=== PATIENT | female | born 1945 | race Caucasian/White ===

== ENCOUNTER 2019-01-31 09:08 | Inpatient (IN) | payer BC, OTHER ==
[~2019-01-31] VITALS: Ht 157.5 cm; Wt 66.7 kg
[2019-01-31 09:48] LABS: BASOPHILS # (AUTO) 0.1 /CMM (0.0-0.2); BASOPHILS % (AUTO) 0.9 % (0.0-2.0); EOSINOPHILS % (AUTO) 0.8 % (0.0-6.0); HEMATOCRIT 42 % (33-45); HEMOGLOBIN 14.5 g/dL (11.5-14.8); LYMPHOCYTES # (AUTO) 2.2 /CMM (0.8-4.8); LYMPHOCYTES % (AUTO) 22.6 % (20.0-44.0); MEAN CORPUSCULAR HGB CONC 34 g/dl (31.0-36.0); MEAN CORPUSCULAR VOLUME 91 fL (82-100); MONOCYTES # (AUTO) 0.6 /CMM (0.1-1.30); NEUTROPHILS # (AUTO) 6.7 /CMM (1.8-8.9); NEUTROPHILS % (AUTO) 69.7 % (43.0-81.0); PLATELET COUNT (AUTO) 319 /CMM (150-450); RED BLOOD CELL COUNT(AUTO) 4.64 MIL/uL (4.0-5.2); WHITE BLOOD COUNT (AUTO) 9.7 K/uL (4.3-11.0)
[2019-01-31 09:48] LABS: APPEARANCE,URINE Clear (CLEAR); BILIRUBIN,URINE Negative (NEGATIVE); BLOOD, URINE Small Ery/uL (NEGATIVE); COLOR,URINE Yellow (YELLOW); KETONES,URINE 15 (NEGATIVE); LEUKOCYTE ESTERASE ,URINE Trace (NEGATIVE); NITRITE, URINE Negative (NEGATIVE); PROTEIN,URINE 100 mg/dl (NEGATIVE); UGLUCOSE Negative (NEGATIVE); UROBILINOGEN,URINE 0.2 EU/dL (0.2)
--- NOTE | 2019-01-31 09:51 | NUR ---
PT BROUGHT IN BT SPOUSE ALERT AND ORIENTEDX 3 ANXIOUS WITH TINGLING FEELINGS AND SHAKING. PIV PLACED LABS DRAWN FLUIDS GIVEN URINE OBTAINED WELL WILL CONTINUE TO MONITOR PT.
[2019-01-31] MEDS ORDERED: ONDANSETRON HCL/PF 4 MG/2 ML VIAL ONE ×2 (09:54→10:40)
[2019-01-31 09:55] LABS: CALCIUM, SERUM 9.2 mg/dL (8.5-10.1); CARBON DIOXIDE 28 mmol/L (21-32); CHLORIDE 104 mmol/L (98-107); GLUCOSE 152 mg/dL (74-106); POTASSIUM 3.7 mmol/L (3.5-5.1); SODIUM SERUM 146 mmol/L (136-145); UREA NITROGEN, BLOOD 14 mg/dL (7-18)
[2019-01-31] MEDS ORDERED: MORPHINE SULFATE INJ 4 MG/ML DISP.SYRIN ONE (09:55)
[2019-01-31 09:58] LABS: BACTERIA,URINE 1+ /HPF (None Seen); SQUAMOUS EPITHELIAL CELL,UR Many /HPF (None Seen)
[2019-01-31 09:59] LABS: MUCUS,URINE Many /LPF (None Seen)
[2019-01-31 10:00] LABS: ALANINE AMINOTRANSFERASE 26 U/L (12-78); ALBUMIN 3.8 g/dL (3.4-5.0); ALKALINE PHOSPHATASE 83 U/L (46-116); ASPARTATE AMINOTRANSFERASE 20 U/L (15-37); BILIRUBIN,DIRECT 0.1 mg/dL (0.0-0.2); BILIRUBIN,TOTAL 0.6 mg/dL (0.2-1.0); LIPASE 133 U/L (73-393); TOTAL PROTEIN, SERUM 8.6 g/dL (6.4-8.2)
[2019-01-31] MEDS ORDERED: MORPHINE SULFATE INJ 2 MG/ML DISP.SYRIN IV ONE (10:00)
[2019-01-31] MEDS ORDERED: IV NS 0.9% 1,000 ML BAG IV ONE (10:00)
[2019-01-31] MEDS ORDERED: ONDANSETRON HCL/PF 4 MG/2 ML VIAL IVP ONE (10:00)
[2019-01-31] MEDS ORDERED: BEPO10DR EACHEYE (10:31)
[2019-01-31] MEDS ORDERED: ALPR0.5T8 PO (10:31)
[2019-01-31] MEDS ORDERED: METO-357 PO (10:31)
[2019-01-31] MEDS ORDERED: ROSU5TAB12 PO (10:31)
[2019-01-31] MEDS ORDERED: OMEP20CA10 PO (10:31)
[2019-01-31] MEDS ORDERED: GABA-532 PO (10:31)
[2019-01-31] MEDS ORDERED: DULO30CA51 PO (10:31)
[2019-01-31] MEDS ORDERED: LEVO50TA PO (10:31)
[2019-01-31] MEDS ORDERED: ONDA4TAB11 SL (10:31)
[2019-01-31] MEDS ORDERED: TRIA1TAB3 PO (10:31)
[2019-01-31] MEDS ORDERED: BECL10.62 INH (10:31)
[2019-01-31] MEDS ORDERED: DICY10CA37 PO (10:31)
[2019-01-31] MEDS ORDERED: DOCU-141 PO (10:39)
[2019-01-31] MEDS ORDERED: DIPH25CA83 PO (10:39)
[2019-01-31] MEDS ORDERED: ONDANSETRON HCL/PF 4 MG/2 ML VIAL IV ONE (11:00)
--- NOTE | 2019-01-31 11:01 | NUR ---
WHITNEY MELGOZA... HANK IS ON HIS WAY DOWNSTAIRS.
--- NOTE | 2019-01-31 11:17 | NUR ---
REPORT GIVEN TO SAVI HOUGH FOR PATRICIA
--- NOTE | 2019-01-31 11:23 | NUR ---
REPORT CALLED PT MED/SURG ALL MEDICATIONS AND FLUIDS COMPLETED IN EMERGENCY ROOM PT TAKEN TO FLOORS ADMITTING MD MCKINNEY ADMITTING DIAGNOSIS COLITIS.
--- NOTE | 2019-01-31 11:30 | NUR ---
MS RN NOTES ADMITTED PATIENT FRO ER REPORT GIVEN BY MINDY WITH STABLE VITAL SIGNS. NO ACUTE DISTRESS NOTED. DENIED ANY PAIN AT THIS TIME. BREATHING UNLABORED, NO SOB NOTED. IV ACCESS PATENT AND INTACT, NO REDNESS OR SWELLING NOTED. ORIENTED TO THE ROOM. SAFETY MEASURES IN PLACE. CALL LIGHT WITHIN REACH. WILL CONTINUE TO MONITOR ACCORDINGLY.
[2019-01-31 12:00] VITALS: BP 143/86
[2019-01-31] MEDS ORDERED: MAGNESIUM HYDROXIDE 30 ML UDC PO PRN (12:00)
[2019-01-31] MEDS ORDERED: TEMAZEPAM 15 MG CAPSULE PO PRN (12:00)
[2019-01-31] MEDS ORDERED: HYDROCODONE/APAP 5/325MG 1 EACH TABLET PO PRN (12:00)
[2019-01-31] MEDS ORDERED: MORPHINE SULFATE INJ 2 MG/ML DISP.SYRIN IV PRN (12:00)
[2019-01-31] MEDS ORDERED: MAG HYDROX/AL HYDROX/SIMETH 30 ML UDC PO PRN (12:00)
[2019-01-31] MEDS ORDERED: diphenhydrAMINE HCL 50 MG/ML VIAL IV PRN (12:00)
[2019-01-31] MEDS ORDERED: ACETAMINOPHEN 325 MG TABLET PO PRN (12:00)
[2019-01-31] MEDS: cetrizine 10 MG TABLET PO SCH (12:33)
[2019-01-31] MEDS: IV NS 0.9% 1,000 ML IV PRN (12:34)
[2019-01-31] MEDS: CEFTRIAXONE 1 G in IV D5W 50 ML IV SCH (13:32)
[2019-01-31] MEDS: LORAZEPAM INJ 2 MG/ML VIAL IV PRN (14:29)
[2019-01-31 16:00] VITALS: BP 142/81
--- NOTE | 2019-01-31 18:53 | NUR ---
MS RN NOTES PATIENT IN BED ALERT ORIENTED X 3. NO ACUTE DISTRESS NOTED. BREATHING UNLABORED, NO SOB NOTED. IV ACCESS PATENT AND INTACT, NO REDNESS OR SWELLING NOTED. DUE MEDICATIONS GIVEN. NEEDS ATTENDED AND ANTICIPATED. KEPT CLEAN DRY AND COMFORTABLE. SAFETY MEASURES IN PLACE. CALL LIGHT WITHIN REACH. WILL ENDORSE TO NIGHT NURSE FOR CONTINUITY OF CARE.
--- NOTE | 2019-01-31 19:30 | NUR ---
MS/RN RECEIVE PATIENT AWAKE, ALERT, ORIENTED, COMFORTABLE, NO C/O PAIN, NO DISTRESS NOTED, CALL LIGHT IN REACH. FALL PRECAUTION PER PROTOCOL, INSTRUCTED TO USE THE CALL LIGHT FOR ASSISTANCE, VERBALIZED UNDERSTANDING. WILL MONITOR.
[2019-01-31 20:00] VITALS: BP 146/75
--- NOTE | 2019-01-31 22:07 | NUR ---
MS/RN PATIENT IS SLEEPING AT THIS TIME, AROUSABLE, APPEAR COMFORTABLE, NO SIGNS OF DISTRESS NOTED, CALL LIGHT IN REACH. WILL CONTINUE TO MONITOR.
[2019-02-01] MEDS: ONDANSETRON HCL/PF 4 MG/2 ML VIAL IVP PRN ×2 (05:43→20:59)
[2019-02-01] MEDS: LORAZEPAM INJ 2 MG/ML VIAL IV PRN ×4 (05:52→20:59)
--- NOTE | 2019-02-01 05:56 | NUR ---
MS/RN PATIENT IS VERY ANXIOUS WITH SHAKINESS, ATIVAN IVP WAS GIVEN ORDERED. WILL MONITOR.
--- NOTE | 2019-02-01 07:15 | NUR ---
MS/RN OPENING NOTE THE PATIENT IS RECEIVED IN BED. THE PATIENT IS ALERT AND ORIENTED X4. IN ROOM AIR AND DENIES SOB. RESPIRATION REGULAR AND UNLABORED. DENIES PAIN. THE PATIENT DENIES NAUSEA, VOMITING AT THIS TIME. ABDOMEN SOFT AND NON-DISTENDED. THE PATIENT IS AMBULATORY WITH STABLE GAIT BUT STAND BY ASSIST DONE SAFETY MEASURE. BED LOW AND LOCKED. SIDE RAILS UP X3. CALL LIGHT WITHIN REACH. WILL CONTINUE TO MONITOR.
[2019-02-01 08:00] VITALS: BP 145/90
[2019-02-01] MEDS: cetrizine 10 MG TABLET PO SCH (09:03)
[2019-02-01] MEDS: PANTOPRAZOLE 40 MG TABLET.DR PO SCH (09:03)
--- NOTE | 2019-02-01 09:15 | NUR ---
MS/RN NOTE THE PATIENT REFUSES PT. EXPLAINED RISKS AND BENEFITS BUT SHE STILL REFUSED.
--- NOTE | 2019-02-01 09:16 | NUR ---
MS/RN NOTE REPORT GIVEN TO GIANLUCA PANDYA FOR CONTINUATION OF CARE.
--- NOTE | 2019-02-01 09:20 | NUR ---
MS RN ASSUMPTION OF CARE RECEIVED PT FROM GIANLUCA CHING. PT IS A/O X4 DENIES CHEST PAIN, SOB, N/V. BREATHING IS EVEN AND UNLABORED ON ROOM AIR, NO ACUTE DISTRESS NOTED AT THIS TIME. PT HAS A LEFT AC #20G IV THAT IS RED AND NOT PATENT, REMOVED WITH CATHETER TIP INTACT, WILL ATTEMPT REINSERT PER PT REQUEST LATER. PT PROVIDED WITH CLEAR LIQUID TRAY, DENIES NAUSEA/VOMITING HOWEVER DOES NOT WANT TO EAT TRAY AT THIS TIME. JOVITA AT THE BEDSIDE. PT AND ARE ANXIOUS TO SPEAK WITH HOSPITALIST, DR. GUNN MADE AWARE. ALL NEEDS ATTENDED TO. BED IS LOCKED AND IN LOWEST POSITION, SIDE RAILS UP X2, BED ALARM ON, CALL LIGHT AND POSSESSIONS WITHIN REACH.
[2019-02-01 10:00] LABS: BASOPHILS # (AUTO) 0.1 /CMM (0.0-0.2); BASOPHILS % (AUTO) 0.6 % (0.0-2.0); EOSINOPHILS % (AUTO) 0.3 % (0.0-6.0); HEMATOCRIT 40 % (33-45); HEMOGLOBIN 13.6 g/dL (11.5-14.8); LYMPHOCYTES # (AUTO) 2.1 /CMM (0.8-4.8); LYMPHOCYTES % (AUTO) 20.4 % (20.0-44.0); MEAN CORPUSCULAR HGB CONC 34 g/dl (31.0-36.0); MEAN CORPUSCULAR VOLUME 91 fL (82-100); MONOCYTES # (AUTO) 0.6 /CMM (0.1-1.30); MONOCYTES % (AUTO) 5.9 % (2.0-12.0); NEUTROPHILS # (AUTO) 7.3 /CMM (1.8-8.9); NEUTROPHILS % (AUTO) 72.8 % (43.0-81.0); PLATELET COUNT (AUTO) 285 /CMM (150-450); RED BLOOD CELL COUNT(AUTO) 4.46 MIL/uL (4.0-5.2); WHITE BLOOD COUNT (AUTO) 10.1 K/uL (4.3-11.0)
[2019-02-01] MEDS ORDERED: DICYCLOMINE HCL 10 MG CAPSULE PO PRN (10:00)
[2019-02-01] MEDS ORDERED: DOCUSATE SODIUM 100 MG CAPSULE PO PRN (10:00)
[2019-02-01 10:17] LABS: CARBON DIOXIDE 24 mmol/L (21-32); CHLORIDE 105 mmol/L (98-107); CREATININE 0.9 mg/dL (0.6-1.3); GLUCOSE 110 mg/dL (74-106); MAGNESIUM 1.7 mg/dL (1.8-2.4); PHOSPHORUS 3.2 mg/dL (2.5-4.9); POTASSIUM 3.4 mmol/L (3.5-5.1); SODIUM SERUM 143 mmol/L (136-145); UREA NITROGEN, BLOOD 11 mg/dL (7-18)
--- NOTE | 2019-02-01 10:20 | NUR ---
MS RN NOTE PERSONAL MEDICATION TAKEN TO PHARMACY PER PROTOCOL.
[2019-02-01] MEDS: METOPROLOL SUCCINATE 50 MG TAB.SR.24H PO SCH (10:22)
[2019-02-01 10:32] LABS: CHOLESTEROL 200 mg/dL (<200); HDL CHOLESTEROL 41 mg/dL (40-60); LDL 128 mg/dL (0-99); THYROID STIMULATING HORMONE 1.444 uIU/mL (0.358-3.74); TRIGLYCERIDES 159 mg/dL (30-150)
[2019-02-01] MEDS: LEVOTHYROXINE SODIUM 50 MCG TABLET PO SCH (10:32)
[2019-02-01] MEDS: CEFTRIAXONE 1 G in IV D5W 50 ML IV SCH (14:02)
--- NOTE | 2019-02-01 15:19 | NUR ---
MS GIANLUAC MALONEY SAMPLE TAKEN TO PHARMACY PER PROTOCOL Addendum: 02/01/19 at 1519 by YA STONE RN ERROR, TAKEN TO LAB PER PROTOCOL
[2019-02-01] MEDS ORDERED: POTASSIUM CHLORIDE 20 MEQ TAB.PRT.SR PO ONE (15:30)
[2019-02-01] MEDS ORDERED: Magnesium 1GM/D5W 100ML PREMIX PIGGYBACK IV ONE (15:30)
[2019-02-01 16:00] VITALS: BP 144/74
[2019-02-01] MEDS: IV NS 0.9% 1,000 ML IV PRN (16:04)
--- NOTE | 2019-02-01 16:30 | NUR ---
MS RN NOTE PER ONEIL IN LAB, SINCE C.DIFF SAMPLE IS SOLID THE SAMPLE DOES NOT FIT PROTOCOL TO DO C.DIFF TEST. INFORMED THAT PT HAS HX OF C.DIFF BUT IS DENYING ANY LOOSE STOOLS AT THIS TIME. PER ONEIL C.DIFF SAMPLE CANNOT BE USED TO TEST FOR C.DIFF AT THIS TIME.
[2019-02-01] MEDS: BEPREVE EACHEYE SCH (16:33)
--- NOTE | 2019-02-01 18:51 | NUR ---
MS RN CLOSING NOTE PT IN BED, A/O X4 DENIES CHEST PAIN, SOB, N/V. BREATHING IS EVEN AND UNLABORED ON ROOM AIR, NO ACUTE DISTRESS NOTED AT THIS TIME. PT HAS A RIGHT FA #24G IV INFUSING ORDERED WITHOUT REDNESS OR SWELLING. PT TOLERATED FULL LIQUID DIET AT DINNER TIME WITHOUT N/V. ADLS PROVIDED, SCDS IN PLACE. ALL NEEDS ATTENDED TO. BED IS LOCKED AND IN LOWEST POSITION, SIDE RAILS UP X2, BED ALARM ON, CALL LIGHT AND POSSESSIONS WITHIN REACH. WILL ENDORSE TO MANAGEMENT PROFESSIONAL NURSE FOR CONTINUITY OF CARE.
--- NOTE | 2019-02-01 19:30 | NUR ---
RECEIVED PATIENT IN BED AWAKE. AO X 3, ABLE TO MAKE NEEDS KNOWN. NO ACUTE DISTRESS NOTED. DENIES ANY PAIN AT THIS TIME. IV SITE PATENT, INTACT; FLUSHED. SAFETY REMINDERS GIVEN. ON LOW BED WITH BILATERAL UPPER SIDE RAILS UP. CALL JOSEPH WITHIN EASY REACH. WILL CONTINUE TO MONITOR.
[2019-02-01 20:00] VITALS: BP 142/76
[2019-02-01] MEDS ORDERED: GABAPENTIN 100 MG CAPSULE PO SCH (22:00)
--- NOTE | 2019-02-02 06:00 | NUR ---
PATIENT ASLEEP, EASILY AROUSABLE. RESPIRATIONS EVEN. NO SIGNS OF PAIN NOTED. DUE MEDS GIVEN WITH NO ASE NOTED. NEEDS ATTENDED. SAFETY PRECAUTIONS AND COMFORT MEASURES IN PLACE. WILL GIVE REPORT TO DAY SHIFT FOR CONTINUITY OF CARE.
--- NOTE | 2019-02-02 06:30 | NUR ---
IV PULLED OUT. PATIENT REFUSED TO HAVE ANOTHER IV INSERTED. EXPLAINED TO PATIENT THAT ATIVAN, ZOFRAN, AND ANTIBIOTIC ARE ALL IVS. PATIENT UNDERSTOOD AND STILL REFUSED TO HAVE IV INSERTED. WILL REPORT TO DAY SHIFT NURSE.
[2019-02-02 06:50] LABS: CALCIUM, SERUM 8.6 mg/dL (8.5-10.1); CARBON DIOXIDE 25 mmol/L (21-32); CHLORIDE 107 mmol/L (98-107); CREATININE 0.7 mg/dL (0.6-1.3); GLUCOSE 91 mg/dL (74-106); POTASSIUM 3.4 mmol/L (3.5-5.1); SODIUM SERUM 143 mmol/L (136-145); UREA NITROGEN, BLOOD 10 mg/dL (7-18)
--- NOTE | 2019-02-02 07:20 | NUR ---
MS RN OPENING NOTES RECEIVED PT LAYING IN BED, SLEEPING COMFORTABLY. PT IS A/O X4, EASILY AROUSABLE. RESPIRATIONS ARE EVEN AN UNLABORED, NOT IN ANY ACUTE DISTRESS NOTED. PT DENIES ANY PAIN AT THIS TIME, NO C/O SOB, N/V. PT STATED SHE WAS ABLE TO SLEEP WELL THROUGHOUT THE NIGHT. NO IV ACCESS. EXPLAINED THE REASON FOR IV ACCESS, PT STATES "I DONT NEED IT AND I DONT WANT IT." HONORED PT'S RIGHTS. ENCOURAGED PT TO EAT BREAKFAST AND EDUCATED PT ON HIGH ACIDIC FOODS. INSTRUCTED PT TO USE CALL LIGHT WHEN ASSISTANCE IS NEEDED, CALL LIGHT IS LEFT WITHIN REACH. WILL CONTINUE TO MONITOR PT THROUGHOUT SHIFT FOR CONTINUITY OF CARE.
[2019-02-02] MEDS ORDERED: LEVOTHYROXINE SODIUM 50 MCG TABLET PO SCH (07:30)
[2019-02-02] MEDS: LEVOTHYROXINE SODIUM 50 MCG TABLET PO SCH (07:36)
[2019-02-02] MEDS: PANTOPRAZOLE 40 MG TABLET.DR PO SCH (07:36)
[2019-02-02 08:00] VITALS: BP 129/80
[2019-02-02 08:27] VITALS: BP 129/80
[2019-02-02] MEDS: METOPROLOL SUCCINATE 50 MG TAB.SR.24H PO SCH (08:27)
[2019-02-02] MEDS: cetrizine 10 MG TABLET PO SCH (08:27)
[2019-02-02] MEDS: BEPREVE EACHEYE SCH (08:27)
[2019-02-02] MEDS ORDERED: ATORVASTATIN 10 MG TABLET PO SCH (09:00)
[2019-02-02] MEDS ORDERED: DULOXETINE HCL 30 MG CAPSULE.DR PO SCH (09:00)
--- NOTE | 2019-02-02 09:17 | NUR ---
MS RN NOTES-- PT SEEN AND EXAMINED BY NUBIA MCKINNEY.
[2019-02-02] MEDS ORDERED: POTASSIUM CHLORIDE 20 MEQ TAB.PRT.SR PO SCH (09:30)
[2019-02-02] MEDS ORDERED: POTASSIUM CHLORIDE 20 MEQ POWDER PACKET PO ONE (10:00)
--- NOTE | 2019-02-02 10:21 | NUR ---
MS RN NOTES-- NUBIA MCKINNEY CONTACTED DR. SWARTZ AND DR. POWELL RE: PT'S POC.
--- NOTE | 2019-02-02 11:05 | NUR ---
MS RN NOTES-- PT SEEN AND EXAMINED BY DR. TRIMBLE.
--- NOTE | 2019-02-02 11:30 | NUR ---
MS PRINTS AND DRAWINGS CURATOR NOTE PT DISCHARGED TO HOME IN STABLE CONDITION. PT IS A/O X4, AFEBRILE. RESPIRATIONS ARE EVEN AND UNLABORED, NOT IN ANY ACUTE DISTRESS NOTED. PT DENIES ANY PAIN, NO C/O SOB, N/V. PUPILS ARE REACTIVE TO LIGHT, BILATERAL HAND BRUSH CLEARER SURVEYING ARE STRONG AND EQUAL. ABDOMEN IS SOFT AND NONDISTENDED, BOWEL SOUNDS ARE PRESENT IN ALL 4 QUADRANTS UPON AUSCULTATION. DENIES ANY BLADDER DISCOMFORT. NO IV ACCESS. ID BANDS REMOVED. NO SKIN ISSUES NOTED. SKIN IS KEPT CLEAN AND DRY. ALL BELONGINGS SENT WITH PT INCLUDING SCRIPTS. PT LEFT IN STABLE CONDITION ACCOMPANIED BY JOVITA IN PERSONAL VEHICLE.
== END 2019-02-02 11:30 | disposition home or self-care (01) | DRG 690 ==
LOC: ER 09:19 → MED 11:20
PROVIDERS: ADMIT Nurse Practitioner Acute Care; ATTEND Nurse Practitioner Acute Care
DX: N39.0 Urinary tract infection, site not specified (principal); F33.3 Major depressive disorder, recurrent, severe with psychotic symptoms; K57.30 Diverticulosis of large intestine without perforation or abscess without bleeding; K58.0 Irritable bowel syndrome with diarrhea; E78.5 Hyperlipidemia, unspecified; E86.0 Dehydration; I10 Essential (primary) hypertension; Z79.899 Other long term (current) drug therapy; E03.9 Hypothyroidism, unspecified; K21.9 Gastro-esophageal reflux disease without esophagitis; Z86.19 Personal history of other infectious and parasitic diseases; Z79.51 Long term (current) use of inhaled steroids; B96.89 Other specified bacterial agents as the cause of diseases classified elsewhere; J30.9 Allergic rhinitis, unspecified; Z98.890 Other specified postprocedural states; E66.9 Obesity, unspecified; Z68.27 Body mass index [BMI] 27.0-27.9, adult; F41.1 Generalized anxiety disorder; G89.29 Other chronic pain
CPT/HCPCS: 36415; 71045-TC; 80048-TC; 80061-TC; 80076-TC; 81000-TC; 83690-TC; 83735-TC; 84100-TC; 84443-TC; 84484-TC; 85025-TC; 86140-TC; 87081-TC; 87086-TC; G0378; J0696; J2060; J2270; J2405; J3475; J7030; J7060